=== PATIENT | female | born 1965 | race African-American/Black ===

== ENCOUNTER 2023-05-21 06:22 | Day surgery (SDC) | payer OTHER ==
[2023-05-15 13:21] VITALS: BMI 27.1
[2023-05-21] MEDS ORDERED: LIDOCAINE HCL 1%, 10 MG/ML (20ML VIAL) ONE (07:31)
[2023-05-21] MEDS ORDERED: BUPIVACAINE HCL/PF 0.25% (2.5MG/ML) 10 ML VIAL ONE (07:31)
[2023-05-21] MEDS ORDERED: LIDOCAINE 1%-EPI 1:100,000 30 ML MDV IJ ONE (07:31)
[2023-05-21] MEDS ORDERED: PROPOFOL 20 ML ONE (07:45)
[2023-05-21] MEDS ORDERED: MIDAZOLAM HCL 2 MG/2 ML SINGLE DOSE VIAL ONE (07:45)
[2023-05-21] MEDS ORDERED: ceFAZolin SODIUM 1 GM VIAL ONE (07:45)
[2023-05-21] MEDS ORDERED: LIDOCAINE HCL/PF 2% SDV 5ML VIAL ONE (07:45)
[2023-05-21] MEDS ORDERED: PROMETHAZINE HCL 25 MG/1 ML VIAL IVPB PRN (09:02)
[2023-05-21] MEDS ORDERED: ONDANSETRON 4 MG/2 ML VIAL IVPUSH PRN (09:02)
[2023-05-21] MEDS ORDERED: oxyCODONE HCL 5 MG TABLET PO PRN (09:02)
[2023-05-21] MEDS ORDERED: KETOROLAC TROMETHAMINE 30 MG/1 ML VIAL IVPUSH PRN (09:03)
[2023-05-21] MEDS ORDERED: ACETAMINOPHEN 1000 MG/100 ML BAG IVPB PRN (09:04)
[2023-05-21] MEDS ORDERED: LACTATED RINGERS SOLUTION 1,000 ML IV SCH (09:15)
[2023-05-21 09:54] VITALS: TEMP 97.2
[2023-05-21 09:56] VITALS: RESP 18
[2023-05-21 10:13] VITALS: BP 120/80; PULSE 46
== END 2023-05-21 10:24 | disposition home or self-care (01) ==
LOC: FASU 06:22
PROVIDERS: ATTEND Orthopaedic Surgery
PROC: 0LN70ZZ Release Right Hand Tendon, Open Approach (ICD-10-PCS; principal; 2023-05-21 08:29)
DX: M65.331 Trigger finger, right middle finger (principal)
CPT/HCPCS: 88304-TC; 94760